=== PATIENT | female | born 1965 | race Caucasian/White ===

== ENCOUNTER → 2020-01-25 | Outpatient (CLI) | payer BC ==
[~2020-01-25] MED LIST: CLONAZEPAM0.5 MG PO; ERYTHROMYCIN 2%60 ML OP; HYDROCHLOROTHIAZIDE; LEXAPRO20 MG PO; LISINOPRIL; LISINOPRIL-HCT1 EAC1 PO
== END | disposition home or self-care (01) ==
LOC: DX 10:31 → EDSTATUS 02-11 07:00
PROVIDERS: ATTEND Physical Medicine & Rehabilitation Pain Medicine
DX: M54.16 Radiculopathy, lumbar region (principal); Z01.810 Encounter for preprocedural cardiovascular examination; Z01.812 Encounter for preprocedural laboratory examination; Z11.59 Encounter for screening for other viral diseases; Z53.9 Procedure and treatment not carried out, unspecified reason
CPT/HCPCS: 87635; 93005